=== PATIENT | female | born 1990 | race Caucasian/White ===

== ENCOUNTER 2016-05-24 01:45 | Emergency (ER) | payer BC, MEDICAID, SELFPAY ==
[2016-05-24 01:57] VITALS: BP 144/75
--- NOTE | 2016-05-24 02:07 | EDM.PDOC ---
ED HPI GENERAL MEDICAL PROBLEM - General Chief Complaint: General Stated Complaint: Left leg numbness Time Seen by Provider: 05/24/16 02:01 Source of Information: Reports: Patient, EMS notes reviewed, Family, RN, RN notes reviewed History Limitations: Reports: No limitations - History of Present Illness INITIAL COMMENTS - FREE TEXT/NARRATIVE: Patient is brought to the ED at [facility] via EMS with complaints of left leg numbness that started approximately 1 hour [place]. Patient states she woke up to use the restroom at home and noticed her entire left leg was numb. Patient denies any injury or trauma. No recent leg/back surgeries. Patient denies any trouble with ambulation. Patient denies any tingling or paresthesias. Onset: today Onset Date: 05/24/16 Onset Time: 00:55 Duration: Recurring Location: Reports: lower extremity, left Quality: Reports: Other (numbness) Severity: mild Context: Denies: Activity, Exercise, Lifting, Sick contact, Trauma Associated Symptoms: Reports: no other symptoms - Related Data Allergies Allergy/AdvReac Type Severity Reaction Status Date / Time Sulfa (Sulfonamide Allergy Hives Verified 05/24/16 01:57 Antibiotics) gluten Allergy Cannot Uncoded 05/24/16 01:57 Remember Home Meds: Home Meds Atenolol 25 mg PO PRN 05/24/16 [History] Past Medical History Other HEENT History: ear congestion Other Cardiovascular History: svt Other Gastrointestinal History: gerd Neurological History: Reports: Migraines Other Dermatologic History: impetigo Social & Family History - Tobacco Use Smoking Status *Q: Never Smoker Second Hand Smoke Exposure: No - Alcohol Use Days Per Week of Alcohol Use: 1 Number of Drinks Per Day: 1 Total Drinks Per Week: 1 - Recreational Drug Use Recreational Drug Use: No - Living Situation & Occupation Living situation: Reports: , with family ED ROS GENERAL - Review of Systems Review Of Systems: See Below Constitutional: Denies: fever, chills, weakness Respiratory: Denies: shortness of breath, cough Cardiovascular: Denies: Chest pain, Palpitations Skin: Reports: no symptoms Neurological: Reports: numbness (LLE). Denies: dizziness, headache, paresthesia , tingling Psychiatric: Reports: Anxiety ED EXAM, GENERAL - Physical Exam Exam: See Below Exam Limited By: No limitations General Appearance: alert, no apparent distress Eye Exam: bilateral eye: EOMI, normal inspection, PERRL Head: atraumatic, normocephalic Neck: supple Respiratory/Chest: no respiratory distress, lungs clear, normal breath sounds Cardiovascular: normal peripheral pulses, no edema, tachycardia Peripheral Pulses: 2+: radial (L), radial (R), posterior tibial (L), posterior tibial (R), dorsalis pedis (L), dorsalis pedis (R) Extremities: normal inspection, normal range of motion, non-tender, normal capillary refill Neurological: alert, oriented, normal cognition Skin Exam: Warm, Dry, Intact, Normal color, No rash Course - Vital Signs Last Recorded V/S: Last Vital Signs Temp 37.1 C 05/24/16 01:45 Pulse 112 H 05/24/16 01:45 Resp 20 05/24/16 01:45 BP 144/75 H 05/24/16 01:45 Pulse Ox 98 05/24/16 01:45 - Orders/Labs/Meds Orders: Active Orders 24 hr Category Date Time Status Lumbar Spine 2 or 3V [CR] Stat Exams 05/24/16 02:02 Taken Meds: Medications Discontinued Medications Generic Name Dose Route Start Last Admin Trade Name Freq PRN Reason Stop Dose Admin Hydroxyzine HCl 50 mg 05/24/16 02:08 Vistaril IM 05/24/16 02:09 ONETIME ONE Departure - Departure Time of Disposition: 02:38 Disposition: Home, Self-Care 01 Condition: good Clinical Impression: Numbness in left leg Forms: ED Department Discharge Additional Instructions: 1. Xray of your back was normal 2. Anxiety symptoms can make your symptoms worse 3. Rest and relax, no emergency was found today 4. See your Primary for follow up if symptoms do not resolve over the next few days - Problem List Review Problem List Initiated/Reviewed/Updated: Yes - My Orders Last 24 Hours: My Active Orders 05/24/16 02:02 Lumbar Spine 2 or 3V [CR] Stat - Assessment/Plan Last 24 Hours: My Active Orders 05/24/16 02:02 Lumbar Spine 2 or 3V [CR] Stat
[2016-05-24] MEDS: hydrOXYzine HCl 50 MG/ML SDV IM ONE ×2 (02:43→02:46)
== END 2016-05-24 02:51 | disposition home or self-care (01) ==
LOC: VM.ED 01:45
DX: R20.0 Anesthesia of skin (principal); Z88.2 Allergy status to sulfonamides; Z88.8 Allergy status to other drugs, medicaments and biological substances
CPT/HCPCS: 72100; 99284; J3410